=== PATIENT | female | born 1985 | race Caucasian/White ===

== ENCOUNTER 2017-02-17 08:44 | Emergency (ER) | payer OTHER, MEDICAID ==
[~2017-02-17] VITALS: Ht 160 cm; Wt 89.4 kg
[~2017-02-17 08:44] MED LIST: AMLO-313 PO; ASPI81TA2 PO; CAT.2 PO; TRAZ300T11 PO
[2017-02-17 09:01] VITALS: BP_SYST 165
--- NOTE | 2017-02-17 09:12 | NUR ---
Patient to ER bed 7 to gown for evaluation. Side rails up.
--- NOTE | 2017-02-17 09:12 | NUR ---
ER at bedside examining patient.
--- NOTE | 2017-02-17 09:13 | NUR ---
Pt presents to ED fro suture removal.
--- NOTE | 2017-02-17 09:15 | NUR ---
Pt tolerated procedure well.
[2017-02-17] MEDS ORDERED: BACITRACIN 1 GM OINT TP ONE ×2 (09:22→09:30)
[2017-02-17 09:25] VITALS: BP_SYST 162
--- NOTE | 2017-02-17 09:25 | NUR ---
Patient given written and verbal discharge instructions and verbalizes understanding. ER MD discussed with patient the results and treatment provided. Patient in stable condition. ID arm band removed. Patient educated on pain management and to follow up with PMD. Pain Scale 0. Opportunity for questions provided and answered.
== END 2017-02-17 09:25 | disposition home or self-care (01) ==
LOC: SED 08:44
DX: S01.81XD Laceration without foreign body of other part of head, subsequent encounter (principal); I10 Essential (primary) hypertension; I48.91 Unspecified atrial fibrillation; Z79.82 Long term (current) use of aspirin; Z79.899 Other long term (current) drug therapy; X58.XXXD Exposure to other specified factors, subsequent encounter
CPT/HCPCS: 99281

== ENCOUNTER 2017-12-18 12:39 | Emergency (ER) | payer OTHER, MEDICAID ==
[~2017-12-18] VITALS: Ht 157.5 cm; Wt 88.5 kg
[~2017-12-18 12:39] MED LIST changes: -AMLO-313 PO; +AMLO-349 PO; +ASPI-1155 PO; -ASPI81TA2 PO
[2017-12-18 12:40] VITALS: BP_SYST 145
--- NOTE | 2017-12-18 12:40 | NUR ---
BROUGHT BACK TO BED #2 AND TRIAGED. REPORT GIVEN TO CLAU
--- NOTE | 2017-12-18 12:40 | NUR ---
Pt c/o left lower back pain x 2 days. Denies injury or trauma. Dialysis pt MWF, last dialyzed [employer]. Pt AAOx4, denies C/P or SOB, talking with familiy member, eating a bag of chips.
--- NOTE | 2017-12-18 13:05 | NUR ---
Dr. Ennis at bedside.
[2017-12-18 13:41] LABS: BASOPHILS # (AUTO) 0.1 K/uL (0.0-0.2); BASOPHILS % (AUTO) 1.8 % (0.0-2.0); EOSINOPHILS # (AUTO) 0.3 K/uL (0.0-0.4); HEMATOCRIT 41.5 % (36-48); HEMOGLOBIN 12.9 g/dL (12.0-16.0); LYMPHOCYTES # (AUTO) 1.3 K/uL (1.0-5.5); LYMPHOCYTES % (AUTO) 19.8 % (20.5-51.5); MEAN CORPUSCULAR HEMOGLOBIN 30 pg (27-31); MEAN CORPUSCULAR HGB CONC 31 % (32-36); MEAN CORPUSCULAR VOLUME 95 fL (79.0-98.0); MONOCYTES # (AUTO) 0.6 K/uL (0.0-1.0); MONOCYTES % (AUTO) 9.5 % (1.7-9.3); NEUTROPHILS # (AUTO) 4.1 K/uL (1.8-7.7); NEUTROPHILS % (AUTO) 64.9 % (40.0-70.0); PLATELET COUNT (AUTO) 205 K/uL (130-430); RED BLOOD CELL COUNT(AUTO) 4.35 MIL/uL (4.2-6.2); WHITE BLOOD COUNT (AUTO) 6.4 K/uL (4.8-10.8)
[2017-12-18 13:54] LABS: BILIRUBIN,URINE 2+ (NEGATIVE); BLOOD, URINE 3+ (NEGATIVE); CLARITY/URINE CLOUDY (CLEAR); COLOR,URINE RED (YELLOW); GLUCOSE,URINE 1+ (NEGATIVE); KETONES,URINE 2+ (NEGATIVE); LEUKOCYTE ESTERASE ,URINE 3+ (NEGATIVE); NITRITE, URINE POSITIVE (NEGATIVE); PH,URINE 8.5 (5.0-8.0); PROTEIN URINE 3+ (NEGATIVE); UROBILINOGEN,URINE >=8 (0.2-1.0)
[2017-12-18 13:59] LABS: ALBUMIN 3.8 g/dL (3.4-4.8); CALCIUM 9.2 mg/dL (8.4-11.0); CREATININE 6.68 mg/dL (0.55-1.30); POTASSIUM 4.1 mmol/L (3.5-5.1); TOTAL BILIRUBIN 0.4 mg/dL (0.0-1.0)
--- NOTE | 2017-12-18 14:00 | NUR ---
No needs verbalized at this time. Family member at bedside.
[2017-12-18] MEDS ORDERED: cefTRIAXone 1 GM VIAL IM ONE (14:15)
[2017-12-18 14:25] LABS: BACTERIA,URINE MANY /HPF (None Seen); RBC,URINE >100 /HPF (0-3); YEAST,URINE None Seen /HPF (None Seen)
[2017-12-18 14:26] LABS: MUCUS,URINE None Seen /LPF (None Seen)
[2017-12-18] MEDS ORDERED: LIDOCAINE 1%, 20 ML MDV 20 ML ONE (14:26)
[2017-12-18 14:42] VITALS: BP_SYST 136
--- NOTE | 2017-12-18 14:42 | NUR ---
Patient given written and verbal discharge instructions and verbalizes understanding. ER MD discussed with patient the results and treatment provided. Patient in stable condition. ID arm band removed. IV catheter removed intact and dressing applied, no active bleeding. No Rx given. Patient educated on pain management and to follow up with PMD. Pain Scale 1/10. Opportunity for questions provided and answered. Medication side effect fact sheet provided.
== END 2017-12-18 14:42 | disposition home or self-care (01) ==
LOC: SED 12:39
DX: N39.0 Urinary tract infection, site not specified (principal); I12.0 Hypertensive chronic kidney disease with stage 5 chronic kidney disease or end stage renal disease; N18.6 End stage renal disease; I48.91 Unspecified atrial fibrillation; Z99.2 Dependence on renal dialysis; Z79.899 Other long term (current) drug therapy
CPT/HCPCS: 36415; 80053; 81000; 84703; 85025; 87086; 96372; 99284; J0696; J2001

== ENCOUNTER 2023-12-03 22:30 | Emergency (ER) | payer MEDICAID, OTHER ==
[~2023-12-03] VITALS: Ht 157.5 cm; Wt 99.8 kg
[2023-12-03 22:46] VITALS: BP_SYST 173; PULSE 86; RESP 20; TEMP 98.6; O2SAT 100
[2023-12-03 23:20] LABS: BILIRUBIN,URINE NEGATIVE (NEGATIVE); BLOOD, URINE 2+ (NEGATIVE); CLARITY/URINE CLEAR (CLEAR); COLOR,URINE YELLOW (YELLOW); GLUCOSE,URINE NEGATIVE (NEGATIVE); KETONES,URINE NEGATIVE (NEGATIVE); LEUKOCYTE ESTERASE ,URINE TRACE (NEGATIVE); NITRITE, URINE NEGATIVE (NEGATIVE); PH,URINE 6.5 (5.0-8.0); PROTEIN URINE TRACE (NEGATIVE); UROBILINOGEN,URINE 0.2 (0.2-1.0)
[2023-12-04 00:03] LABS: BACTERIA,URINE RARE /HPF (None Seen); WBC,URINE 0-3 /HPF (0-3)
[2023-12-04] MEDS ORDERED: cefTRIAXone 1 GM IVPB PREMIX 50 ML IV ONE (00:30)
[2023-12-04] MEDS ORDERED: NACL 0.9% 1,000 ML IV ONE (00:30)
[2023-12-04] MEDS ORDERED: NITR-85 PO (01:28)
[2023-12-04] MEDS ORDERED: CIPR500T5 PO (01:32)
[2023-12-04] MEDS: cefTRIAXone 1 GM in LIDOCAINE 1%, 20 ML MDV 2.1 ML IM ONE (01:47)
== END 2023-12-04 01:34 | disposition home or self-care (01) ==
LOC: SED 22:30
DX: N39.0 Urinary tract infection, site not specified (principal); H66.91 Otitis media, unspecified, right ear; I10 Essential (primary) hypertension; I48.91 Unspecified atrial fibrillation; Z98.890 Other specified postprocedural states; Z79.899 Other long term (current) drug therapy; Z79.82 Long term (current) use of aspirin
CPT/HCPCS: 99283; 81001; 87040; 87086; 87186; 36415; 96372; J0696; 81000; 81015